=== PATIENT | female | born 1995 | race American Indian/Alaskan Native ===

== ENCOUNTER 2021-01-25 10:12 | Emergency (ER) | payer SELFPAY ==
[2021-01-25 10:38] VITALS: BP 111/77
[2021-01-25] MEDS ORDERED: HYDROGEN PEROXIDE 118 ML SOLUTION ONE (11:07)
--- NOTE | 2021-01-25 11:46 | Emergency Department Report ---
ED General Adult HPI - General Chief complaint: Fever Stated complaint: BA/FEVER Time Seen by Provider: 01/25/21 11:03 Source: patient Mode of arrival: Ambulatory Limitations: No Limitations - History of Present Illness Initial comments: 25-year-old -[place] female patient with history of asthma presents with complaints of cough, congestion, fever, and body aches and chills for the past 3 days. Patient states fever at home was 102 orally. Fever resolved with ibuprofen which also helps with the body aches per patient. She denies her cough being productive and also denies any hemoptysis. She admits to some chest pain with coughing only. No shortness of breath per patient or wheezing. She also denies any loss of taste or smell, recent known sick contacts, abdominal pain, or diarrhea. Patient reports 1 episode of vomiting yesterday. She denies any possibility of . She is not vaccinated for COVID-19 or the flu and has not had any recent testing performed - Related Data Previous Rx's Medication Instructions Recorded Last Taken Type Benzonatate 200 mg PO TID PRN #21 capsule 01/25/21 Unknown Rx Loratadine 10 mg PO 10 #10 tablet 01/25/21 Unknown Rx predniSONE [Deltasone] 20 mg PO BID #6 tab 01/25/21 Unknown Rx Allergies Allergy/AdvReac Type Severity Reaction Status Date / Time No Known Allergies Allergy Verified 01/25/21 10:38 ED Review of Systems ROS: Stated complaint: BA/FEVER Other details as noted in HPI Constitutional: chills, fever, malaise ENT: denies: throat pain Respiratory: cough. denies: shortness of breath Gastrointestinal: nausea, vomiting. denies: abdominal pain, diarrhea, constipation, hematemesis, melena Skin: denies: rash, lesions, change in color Neurological: denies: headache Hematological/Lymphatic: denies: swollen glands ED Past Medical Hx - Past Medical History Hx Asthma: Yes - Medications Home Medications: Home Medications Medication Instructions Recorded Confirmed Last Taken Type Benzonatate 200 mg PO TID PRN #21 capsule 01/25/21 Unknown Rx Loratadine 10 mg PO 10 #10 tablet 01/25/21 Unknown Rx predniSONE [Deltasone] 20 mg PO BID #6 tab 01/25/21 Unknown Rx ED Physical Exam - General Limitations: No Limitations General appearance: alert, in no apparent distress - Head Head exam: Present: atraumatic, normocephalic - Eye Eye exam: Present: normal appearance - Respiratory Respiratory exam: Present: normal lung sounds bilaterally. Absent: respiratory distress - Cardiovascular Cardiovascular Exam: Present: regular rate, normal rhythm - GI/Abdominal GI/Abdominal exam: Present: soft. Absent: tenderness - Neurological Exam Neurological exam: Present: alert, oriented X3, normal gait - Psychiatric Psychiatric exam: Present: normal affect, normal mood - Skin Skin exam: Present: warm, dry, intact, normal color. Absent: rash ED Course Vital Signs 01/25/21 10:36 Temperature 98.7 F Pulse Rate 95 H Respiratory 15 Rate Blood Pressure 111/77 O2 Sat by Pulse 99 Oximetry ED Medical Decision Making - Lab Data Lab Results 01/25/21 Range/Units Unknown Influenza A (Rapid) Negative (Negative) Influenza B (Rapid) Negative (Negative) - Radiology Data Radiology results: report reviewed CHEST PA AND LATERAL VIEWS INDICATION: cough X 2 DAYS. COMPARISON: None. FINDINGS: Support devices: None. Heart: Within normal limits. Lungs/Pleura: No acute pulmonary or pleural findings. IMPRESSION: 1. No acute findings. - Medical Decision Making 25-year-old -[place] female patient with history of asthma presents with complaints of cough, congestion, fever, and body aches and chills for the past 3 days. Patient states fever at home was 102 orally. Fever resolved with ibuprofen which also helps with the body aches per patient. She denies her cough being productive and also denies any hemoptysis. She admits to some chest pain with coughing only. No shortness of breath per patient or wheezing. She also denies any loss of taste or smell, recent known sick contacts, abdominal pain, or diarrhea. Patient reports 1 episode of vomiting yesterday. She denies any possibility of . She is not vaccinated for COVID-19 or the flu and has not had any recent testing performed Chest x-ray is negative for any acute abnormalities. Rapid flu is negative. No acute abnormalities noted on physical exam. Will treat for viral syndrome, however I do recommend patient get outpatient testing for COVID-19 within the next 24 to 48 hours and self quarantine until further instructed. Her vitals are normal, she is nontoxic-appearing, and she is stable for discharge home. Discussed in detail signs and symptoms that should prompt immediate return to the ED with patient who verbalizes understanding. Critical care attestation.: If time is entered above; I have spent that time in minutes in the direct care of this critically ill patient, excluding procedure time. ED Disposition Clinical Impression: Viral syndrome Disposition: HOME / SELF CARE / HOMELESS Is pt being admited?: No Condition: Stable Instructions: Viral Respiratory Infection, [id number] Prescriptions: Benzonatate 200 mg PO TID PRN #21 capsule PRN Reason: Cough predniSONE [Deltasone] 20 mg PO BID #6 tab Loratadine 10 mg PO 10 #10 tablet Referrals: PRIMARY CARE, [Primary Care Provider] - 3-5 Days Forms: Work/School Release Form(ED)
--- NOTE | 2021-01-25 12:08 | XRay Report ---
CHEST PA AND LATERAL VIEWS INDICATION: cough X 2 DAYS. COMPARISON: None. FINDINGS: Support devices: None. Heart: Within normal limits. Lungs/Pleura: No acute pulmonary or pleural findings. IMPRESSION: 1. No acute findings. Signer Name: Hill Hood MD Signed: 01/25/2021 12:03 PM Workstation Name: [email or web address] [id number]
== END 2021-01-25 14:50 | disposition home or self-care (01) ==
LOC: ED 10:12
DX: B34.9 Viral infection, unspecified (principal); J45.909 Unspecified asthma, uncomplicated
CPT/HCPCS: 71046; 87400; 99283